=== PATIENT | female | born 1990 | race Caucasian/White ===

== ENCOUNTER 2016-09-27 14:17 | Emergency (ER) | payer MEDICAID, OTHER ==
[~2016-09-27] VITALS: Ht 167.6 cm; Wt 62.0 kg
[2016-09-27 14:36] VITALS: Ht 167.6 cm; Wt 62.0 kg
[2016-09-27] MEDS: KETOROLAC 30 MG INJ IM STA ×2 (15:28→15:31)
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
[2016-09-27] MEDS ORDERED: IBUP-1542 PO (16:29)
[2016-09-27] MEDS ORDERED: AZIT500T3 PO (16:29)
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
== END 2016-09-27 16:33 | disposition home or self-care (01) ==
LOC: FTE 14:17
DX: S02.2XXA Fracture of nasal bones, initial encounter for closed fracture (principal); V49.50XA Passenger injured in collision with unspecified motor vehicles in traffic accident, initial encounter
CPT/HCPCS: 70486; J1885; 96372